=== PATIENT | female | born 1965 | race Caucasian/White ===

== ENCOUNTER 2023-06-23 17:37 | Inpatient (IN) | payer BC ==
[2023-06-23] MEDS ORDERED: EPINEPHrine 1 MG/ML VIAL ONE (19:57)
[2023-06-23] MEDS ORDERED: Bupivacaine 0.25% HCL 30 ML VIAL ONE (19:58)
[2023-06-23] MEDS ORDERED: CEFAZOLIN 2 GM in Sodium Chloride 0.9% 100 ML IVPB SCH (20:45)
[2023-06-23] MEDS ORDERED: CEFAZOLIN 2 GM VIAL ONE (20:48)
[2023-06-23] MEDS ORDERED: Sodium Chloride 0.9% 100 ML ONE (20:49)
[2023-06-23] MEDS ORDERED: PROPOFOL 20 ML ONE (21:15)
[2023-06-23] MEDS ORDERED: fentaNYL PF 100 MCG/2 ML SYRINGE ONE (21:15)
[2023-06-23] MEDS ORDERED: Rocuronium Bromide 10 MG/ML (10ML VIAL) ONE (21:16)
[2023-06-23] MEDS ORDERED: Ondansetron PF 4 MG/2 ML Vial ONE ×2 (21:16→21:42)
[2023-06-23] MEDS ORDERED: Lidocaine 1% PF 5 ML VIAL ONE (21:16)
[2023-06-23] MEDS ORDERED: Ketorolac Tromethamine 30 MG (1 mL) VIAL ONE (21:42)
[2023-06-23] MEDS ORDERED: Esmolol 100 MG/10 ML VIAL ONE (21:45)
[2023-06-23] MEDS ORDERED: SUGAMMADEX SODIUM 200 MG/2 ML VIAL ONE (21:57)
[2023-06-23] MEDS ORDERED: Labetalol HCl 100 MG/20 ML VIAL ONE (21:59)
[2023-06-23] MEDS ORDERED: Promethazine HCl 25 MG/ML VIAL IM PRN (22:22)
[2023-06-23] MEDS ORDERED: Ondansetron HCl/PF 4 MG/2 ML Vial IVP PRN (22:22)
[2023-06-23] MEDS ORDERED: Morphine 4 MG/ML VIAL SLOW IVP PRN (22:27)
[2023-06-23] MEDS ORDERED: fentaNYL 50 mcg/mL 1 mL Vial ONE (22:32)
[2023-06-23] MEDS: Acetaminophen/Codeine 30-300mg Tablet PO PRN (23:58)
[2023-06-24 00:07] VITALS: BMI 28.5
[2023-06-24 05:40] LABS: #Basophils 0.1 thou/uL (0.0-0.2); #Eosinphils 0.3 thou/uL (0.0-0.7); #Monocytes 0.7 thou/uL (0.11-0.59); #Neutrophils 5.4 thou/uL (1.40-6.50); %Basophils 0.7 % (0.0-1.0); %Eosinophils 3.3 % (0.0-10.0); %Lymphocytes 24.2 % (21.0-51.0); %Monocytes 8.6 % (0.0-10.0); %Neutrophils 62.9 % (42.0-75.0); Hematocrit 41.8 % (36.0-47.0); Mean Corpuscular HGB CONC 33.5 g/dL (32.0-36.0); Mean Corpuscular Hemoglobin 30.1 pg (27.0-31.0); Mean Corpuscular Volume 89.9 fl (78.0-98.0); Mean Platelet Volume 9.7 fL (7.4-10.4); Platelet Count 241 10x3/uL (130-400); RBC Distribution Width 12.6 % (11.5-14.5); Red Blood Cell (RBC) Count 4.65 mill/uL (4.20-5.40); White Blood Cell (WBC) Count 8.6 10x3/uL (4.8-10.8)
[2023-06-24 06:33] LABS: ALT (SGPT) 327 U/L (8-55); AST (SGOT) 239 U/L (5-34); Albumin 3.6 g/dL (3.5-5.0); Alkaline Phosphatase 123 U/L (40-110); Anion Gap 12 mmol/L (10-20); BUN (Urea Nitrogen) 10 mg/dL (9.8-20.1); Bilirubin, Total 2.1 mg/dL (0.2-1.2); Calc. Creatinine Clearance 88 mL/min (70-130); Calcium 8.7 mg/dL (7.8-10.44); Carbon Dioxide 24 mmol/L (22-29); Chloride 105 mmol/L (98-107); Estimated GFR 83; Globulin 2.5 g/dL (2.4-3.5); Glucose 92 mg/dL (70-105); Potassium 3.7 mmol/L (3.5-5.1); Protein, Total 6.1 g/dL (6.0-8.3); Sodium 137 mmol/L (136-145)
[2023-06-24] MEDS ORDERED: traMADol HCl 50 MG TAB PO PRN (12:54)
[2023-06-24] MEDS: Acetaminophen 500 MG TAB PO SCH (14:48)
[2023-06-24] MEDS: Ibuprofen 600 MG TAB PO SCH (15:49)
[2023-06-24] MEDS: traMADol HCl 50 MG TAB PO SCH (17:50)
[2023-06-24] MEDS: Senokot S 8.6-50 MG TAB PO SCH (20:27)
[2023-06-24] MEDS: Ondansetron PF 4 MG/2 ML Vial IVP PRN (20:29)
[2023-06-25 05:52] LABS: ALT (SGPT) 208 U/L (8-55); AST (SGOT) 86 U/L (5-34); Albumin 3.6 g/dL (3.5-5.0); Alkaline Phosphatase 122 U/L (40-110); Anion Gap 12 mmol/L (10-20); BUN (Urea Nitrogen) 13 mg/dL (9.8-20.1); Bilirubin, Total 0.8 mg/dL (0.2-1.2); Calc. Creatinine Clearance 91 mL/min (70-130); Carbon Dioxide 25 mmol/L (22-29); Chloride 104 mmol/L (98-107); Estimated GFR 87; Globulin 2.7 g/dL (2.4-3.5); Glucose 106 mg/dL (70-105); Protein, Total 6.3 g/dL (6.0-8.3); Sodium 137 mmol/L (136-145)
[2023-06-25] MEDS: Nicotine 21 MG PATCH TOP SCH (09:18)
[2023-06-25 13:12] VITALS: BP 97/64; TEMP 97.2
== END 2023-06-25 13:23 | disposition home or self-care (01) | DRG 419 ==
LOC: SDC 17:37 → T4-B 22:16 → OBSVTOIN 06-24 11:31
PROVIDERS: ADMIT Student in an Organized Health Care Education/Training Program; ATTEND Student in an Organized Health Care Education/Training Program
PROC: 0FT44ZZ Resection of Gallbladder, Percutaneous Endoscopic Approach (ICD-10-PCS; principal; 2023-06-23)
DX: K80.12 Calculus of gallbladder with acute and chronic cholecystitis without obstruction (principal); I10 Essential (primary) hypertension; F17.210 Nicotine dependence, cigarettes, uncomplicated
CPT/HCPCS: 36415; 74181; 80053; 85025; 88304; C1889; J0171; J0665; J1885; J2405; J2704; J3010; J3490

== ENCOUNTER 2024-03-08 09:00 | Outpatient (CLI) | payer BC | END 2024-03-08 09:01 | disposition home or self-care (01) | LOC: ULT 09:00 | PROVIDERS: ATTEND Nurse Practitioner Family | DX: Z13.31 Encounter for screening for depression (principal); M79.89 Other specified soft tissue disorders | CPT/HCPCS: 76856 ==